=== PATIENT | female | born 1995 | race Caucasian/White ===

== ENCOUNTER 2023-02-08 13:33 | Emergency (ER) | payer SELFPAY ==
[~2023-02-08] VITALS: Ht 152.4 cm; Wt 86.2 kg
[2023-02-08 13:45] VITALS: BP 133/81
[2023-02-08] MEDS ORDERED: OLOP2.5D7 OP (14:11)
[2023-02-08] MEDS ORDERED: FLONAS NS (14:11)
[2023-02-08 15:53] VITALS: BP 115/68
== END 2023-02-08 15:53 | disposition home or self-care (01) ==
LOC: MED 13:33
DX: H10.13 Acute atopic conjunctivitis, bilateral (principal); J31.0 Chronic rhinitis; Z79.899 Other long term (current) drug therapy; Z88.1 Allergy status to other antibiotic agents
CPT/HCPCS: 99283